=== PATIENT | male | born 1950 | race Caucasian/White ===

== ENCOUNTER 2018-10-18 14:09 | Emergency (ER) | payer MEDICARE, OTHER ==
--- NOTE | 2018-10-18 14:40 | XRAY Report ---
Reason: chest pain Procedure Date: 10/18/2018 Accession Number: [id number] / [id number] Procedure: XR - Chest 1 View X-Ray CPT Code: 72489 FULL RESULT: EXAM: CHEST RADIOGRAPHY EXAM DATE: 10/18/2018 02:32 PM. CLINICAL HISTORY: Chest pain. COMPARISON: None. TECHNIQUE: 1 view. FINDINGS: Lungs/Pleura: No focal opacities evident. No pleural effusion. No pneumothorax. Mediastinum: Within exam limitations, the cardiomediastinal contour is normal. Other: None. IMPRESSION: Normal single view chest. RADIA
[2018-10-18 15:30] LABS: BASOPHILS % (AUTO) 0.5 %; EOSINOPHILS # (AUTO) 0.1 10^3/uL (0.0-0.7); HGB - HEMOGLOBIN 13.7 g/dL (14.0-18.0); LYMPHOCYTES # (AUTO) 2.5 10^3/uL (1.5-3.5); LYMPHOCYTES % (AUTO) 38.5 %; MEAN CORPUSCULAR HEMOGLOBIN 30.3 pg (27.0-31.0); MEAN CORPUSCULAR HGB CONC 33.2 g/dL (32.0-36.0); MEAN CORPUSCULAR VOLUME 91.4 fL (80.0-94.0); MEAN PLATELET VOLUME 8.7 fL (7.4-11.4); MONOCYTES # (AUTO) 0.6 10^3/uL (0.0-1.0); MONOCYTES % (AUTO) 9.3 %; NEUTROPHILS # (AUTO) 3.3 10^3/uL (1.5-6.6); NEUTROPHILS % (AUTO) 49.7 %; PLT - PLATELET COUNT 205 10^3/uL (130-450); RED BLOOD COUNT 4.53 10^6/uL (4.70-6.10); RED CELL DISTRIBUTION WIDTH 13.6 % (12.0-15.0); WHITE BLOOD COUNT 6.6 x10^3/uL (4.8-10.8)
[2018-10-18 15:37] LABS: ALBUMIN 4.3 g/dL (3.2-5.5); ALBUMIN/GLOBULIN RATIO 1.5 (1.0-2.2); CALCIUM 9.1 mg/dL (8.5-10.3); CREATININE 0.9 mg/dL (0.6-1.2); TOTAL PROTEIN 7.2 g/dL (6.7-8.2)
--- NOTE | 2018-10-18 16:32 | ED Physician Documentation ---
PD HPI CHEST PAIN - Stated complaint Stated Complaint: CHEST PRESSURE/TINGLING IN HANDS - Chief complaint Chief Complaint: Cardiac - History obtained from History obtained from: Patient - History of Present Illness Timing - onset: Today (Awakened by sternal pressure about 4am this morning. Feels like something is stuck in his throat, took Ntg with improvement. In total was in pain for about 5 min. Now pain free. Had similar episode 1 month ago w neg stress/nuc.) PD PAST MEDICAL HISTORY - Past Medical History Past Medical History: Yes Cardiovascular: Angina - Present Medications Home Medications: Ambulatory Orders Medication Instructions Recorded Confirmed Nitroglycerin 0.4 mg SL Q5M PRN #1 bottle 10/18/18 amLODIPine [Norvasc] 5 mg PO ONCE 10/18/18 10/18/18 - Allergies Allergies/Adverse Reactions: Allergies Allergy/AdvReac Type Severity Reaction Status Date / Time No Known Drug Allergies Allergy Verified 10/18/18 14:21 - Living Situation Living Situation: reports: Other (Lives in [place]) - Social History Does the pt smoke?: No Does the pt have substance abuse?: No PD ED PE NORMAL - Vitals Vital signs reviewed: Yes - General General: Alert and oriented X 3, No acute distress - HEENT HEENT: PERRL, EOMI - Neck Neck: Supple, no meningeal sign, No bony TTP - Cardiac Cardiac: RRR, No murmur - Respiratory Respiratory: No respiratory distress, Clear bilaterally - Abdomen Abdomen: Normal bowel sounds, Soft, Non tender - Back Back: No CVA TTP, No spinal TTP - Derm Derm: Normal color, Warm and dry - Extremities Extremities: No edema, No calf tenderness / cord - Neuro Neuro: Alert and oriented X 3, Normal speech - Psych Psych: Normal mood, Normal affect Results - Vitals Vitals: Vital Signs - 24 hr 10/18/18 14:13 Temperature 36.4 C L Heart Rate 86 Respiratory 20 Rate Blood Pressure 164/93 H O2 Saturation 98 Oxygen O2 Source Room air - EKG (time done) 1430 Rate: Rate (enter#) (78) Rhythm: NSR [place]: Normal Intervals: Normal OK QRS: Normal Ischemia: Normal ST segments Computer interpretation: Agree with computer - Labs Labs: Laboratory Tests 10/18/18 10/18/18 10/18/18 15:13 15:13 15:13 WBC 6.6 RBC 4.53 L Hgb 13.7 L Hct 41.4 L MCV 91.4 MCH 30.3 MCHC 33.2 RDW 13.6 Plt Count 205 MPV 8.7 Neut # (Auto) 3.3 Lymph # (Auto) 2.5 Graves # (Auto) 0.6 Eos # (Auto) 0.1 Baso # (Auto) 0.0 Absolute Nucleated RBC 0.01 Nucleated RBC % 0.1 Sodium 134 L Potassium 4.1 Chloride 100 L Carbon Dioxide 28 Anion Gap 6.0 BUN 20 Creatinine 0.9 Estimated GFR (MDRD) 84 L Glucose 114 H Calcium 9.1 Total Bilirubin 1.0 AST 27 ALT 26 Alkaline Phosphatase 56 Troponin I < 0.04 Total Protein 7.2 Albumin 4.3 Globulin 2.9 Albumin/Globulin Ratio 1.5 Lipase 41 - Rads (name of study) 1v chest Radiology: EMP read contemporaneously (normal) PD MEDICAL DECISION MAKING - ED course ED course: 68-year-old gentleman with an episode of chest pain early this morning. It actually lasted only about 5 minutes. It was associated with feeling of something stuck, I suspect it may have been esophageal spasm, it did resolve with nitroglycerin. He had a stress test 3 weeks ago with a nuclear component the per him was negative. Departure - Departure Disposition: 01 Home, Self Care Clinical Impression: Chest pain Qualifiers: Chest pain type: unspecified Qualified Code(s): R07.9 - Chest pain, unspecified Condition: Good Record reviewed to determine appropriate education?: Yes Instructions: Nitroglycerin Fast Act Dc, ED Chest Pain NonCardiac Prescriptions: Nitroglycerin 0.4 mg SL Q5M PRN #1 bottle PRN Reason: Chest Pain Comments: As discussed given the pattern of your chest pain and recent negative work-up I suspect the cause of your pain is related to esophageal spasm. Return if it happens again. Follow-up with your doctor on return home.
[2018-10-18 16:55] VITALS: BP 128/78
== END 2018-10-18 17:00 | disposition home or self-care (01) ==
LOC: ED 14:09
DX: R07.9 Chest pain, unspecified (principal)
CPT/HCPCS: 36415; 71045; 80053; 83690; 84484; 85025; 93005; 99283